=== PATIENT | male | born 1975 ===

== ENCOUNTER 2017-11-22 10:34 | Inpatient (IN) | payer OTHER ==
[~2017-11-22] VITALS: Ht 167.6 cm; Wt 50.8 kg
[2017-11-27] MEDS ORDERED: OXYCODONE HCL5 M1 PO (16:26)
[2017-11-27] MEDS ORDERED: NEURONTIN300 MG PO (16:26)
[2017-11-27] MEDS ORDERED: DICLOFENAC POTA50 MG PO (16:26)
[2017-11-28] MEDS ORDERED: CLONAZEPAM1 MG PO (09:26)
== END 2017-11-28 10:30 | disposition home or self-care (01) | DRG 988 ==
LOC: ER 10:34 → SURH 16:50
PROVIDERS: Surgery
PROC: BW21Y0Z Computerized Tomography (CT Scan) of Abdomen and Pelvis using Other Contrast, Unenhanced and Enhanced (ICD-10-PCS; 2017-11-22)
PROC: 07BJ0ZX Excision of Left Inguinal Lymphatic, Open Approach, Diagnostic (ICD-10-PCS; 2017-11-23)
PROC: 0DJD7ZZ Inspection of Lower Intestinal Tract, Via Natural or Artificial Opening (ICD-10-PCS; 2017-11-23)
PROC: 0DJD8ZZ Inspection of Lower Intestinal Tract, Via Natural or Artificial Opening Endoscopic (ICD-10-PCS; 2017-11-23)
PROC: 0DBP7ZX Excision of Rectum, Via Natural or Artificial Opening, Diagnostic (ICD-10-PCS; principal; 2017-11-23 09:30)
PROC: BB24Y0Z Computerized Tomography (CT Scan) of Bilateral Lungs using Other Contrast, Unenhanced and Enhanced (ICD-10-PCS; 2017-11-26)
PROC: BW21Y0Z Computerized Tomography (CT Scan) of Abdomen and Pelvis using Other Contrast, Unenhanced and Enhanced (ICD-10-PCS; 2017-11-26)
PROC: 05H633Z Insertion of Infusion Device into Left Subclavian Vein, Percutaneous Approach (ICD-10-PCS; 2017-11-27)
DX: C21.8 Malignant neoplasm of overlapping sites of rectum, anus and anal canal (principal); K62.5 Hemorrhage of anus and rectum; C77.4 Secondary and unspecified malignant neoplasm of inguinal and lower limb lymph nodes; D50.0 Iron deficiency anemia secondary to blood loss (chronic)

== ENCOUNTER 2018-08-07 08:15 | Day surgery (SDC) | payer OTHER ==
[~2018-08-07 08:15] MED LIST: CLONAZEPAM1 MG PO; DICLOFENAC POTA50 MG PO; NEURONTIN300 MG PO; OXYCODONE HCL5 M1 PO
== END 2018-08-07 12:15 | disposition home or self-care (01) ==
LOC: AMB-ENDOS 08:15
DX: K62.7 Radiation proctitis (principal)

== ENCOUNTER 2019-05-28 06:20 | Day surgery (SDC) | payer OTHER ==
[~2019-05-28 06:20] MED LIST changes: +ELIQUIS5 MG PO; +FENTAN PO; +GRALISE600 MG PO; +NORFLEX PO; +OXYCODONE PO
== END 2019-05-28 09:55 | disposition home or self-care (01) ==
LOC: CIR.AMB 06:20
DX: C77.4 Secondary and unspecified malignant neoplasm of inguinal and lower limb lymph nodes (principal)